=== PATIENT | female | born 1995 | race Caucasian/White ===

== ENCOUNTER 2020-11-14 20:14 | Emergency (ER) | payer OTHER ==
[~2020-11-14] VITALS: Ht 160 cm; Wt 56.7 kg
[2020-11-14 21:20] LABS: ABSOLUTE NEUTROPHILS 4.8 thou/uL (1.4-8.2); BASOPHILS 0.8 % (0.0-2.0); EOSINOPHILS 2.4 % (0.0-3.0); HEMATOCRIT 39.7 % (37.0-47.0); HEMOGLOBIN 13.1 gm/dL (12.0-15.0); LYMPHOCYTES 33.3 % (24.0-44.0); MCH 28.8 pg (26.0-34.0); MCHC 32.9 g/dL (28.0-37.0); MCV 87.6 fL (80.0-100.0); PLATELET COUNT 256 thou/uL (150-400); POLYS 55.5 % (36.0-66.0); RBC 4.54 mil/uL (4.20-5.00); RDW 13.6 % (10.5-14.5); WBC 8.7 thou/uL (4.0-11.0)
[2020-11-14 21:27] LABS: ANION GAP 8 mmol/L (7-16); BUN 8 mg/dL (7-18); CALCIUM 8.6 mg/dL (8.5-10.1); CHLORIDE 106 mmol/L (98-107); CO2 26 mmol/L (21-32); CREATININE 0.7 mg/dL (0.6-1.0); GLUCOSE 104 mg/dL (74-106); POTASSIUM 3.7 mmol/L (3.5-5.1); SODIUM 140 mmol/L (136-145)
[2020-11-14 21:37] LABS: SGOT 15 U/L (15-37); SGPT 23 U/L (14-59); TOTAL BILIRUBIN 0.3 mg/dL (0.2-1.0); TOTAL PROTEIN 7.5 g/dL (6.4-8.2); TROPONIN-I <0.06 ng/mL (<0.06)
[2020-11-14] MEDS ORDERED: CARVEDILOL3.125 MG PO ×2 (22:01→22:04)
[2020-11-14 22:49] VITALS: BP 117/75
--- NOTE | 2020-11-15 08:44 | EKG ---
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 : 1995 Requested By: Juana Valdivia Order Number: [id number] MD: Jorge Villalta Measurements Intervals [place] Rate: 107 P: 45 ID: 160 QRS: 15 QRSD: 105 T: -21 QT: 365 QTc: 487 Interpretive Statements Sinus tachycardia Borderline T abnormalities, inferior leads Borderline prolonged QT interval No previous ECG available for comparison Electronically Signed On 11-15-2020 8:44:18 CDT by Jorge Villalta [email or web address] <ELECTRONICALLY SIGNED> By: Jorge Villalta MD, [facility] 11/15/20 [id number] 2043 Jorge Villalta MD, FACC /EPI
== END 2020-11-14 22:51 | disposition home or self-care (01) ==
LOC: ER 20:14
PROVIDERS: Physician Assistant
DX: R00.2 Palpitations (principal); R06.02 Shortness of breath; Z88.8 Allergy status to other drugs, medicaments and biological substances; Z88.1 Allergy status to other antibiotic agents; Z98.890 Other specified postprocedural states